=== PATIENT | male | born 1985 | race African-American/Black ===

== ENCOUNTER 2016-10-12 14:20 | Emergency (ER) | payer SELFPAY ==
--- NOTE | 2016-10-12 15:16 | ERRECORD ---
[facility] EMERGENCY RECORD HPI FOOT (14:44 [facility]) CHIEF COMPLAINT: Patient presents for evaluation of injury, Patient presents for evaluation of pain. HISTORIAN: History provided by patient, 31 year old male presents with complaints of right foot pain. States a horse fell on his foot yesterday. States he was unable to bear weight yesterday but can bear weight today. Denies other injury. MECHANISM OF INJURY: Mechanism of injury: Blunt trauma. LOCATION: Symptoms are localized, most severe in the first metatarsal. TIME COURSE: Sudden onset of symptoms, Symptoms are improving. ASSOCIATED WITH: Associated with pain on walking. ROS (14:45 [facility]) CONSTITUTIONAL: Negative constitutional review of systems, Historian denies chills, denies fever. ENT: Negative ears, nose, throat review of systems, Historian denies rhinorrhea, denies sore throat. CARDIOVASCULAR: Negative cardiovascular review of systems, Historian denies chest pain, denies palpitations. RESPIRATORY: Negative respiratory review of systems, Historian denies cough, denies shortness of breath. GI: Negative gastrointestinal review of systems, Historian denies abdominal pain, denies constipation, denies diarrhea, denies nausea, denies vomiting. MUSCULOSKELETAL: right foot pain sp injury. SKIN: Negative skin review of systems, Historian denies rash, denies skin changes. NEUROLOGIC: Negative neurologic review of systems, Historian denies headache. PAST MEDICAL HISTORY (14:29 [facility]) MEDICAL HISTORY: No past medical history, Flu vaccine not up to date, Tetanus not up to date, Pneumococcal vaccine not up to date. MALE SURGICAL HISTORY: Patient has no surgical history. PSYCHIATRIC HISTORY: Psychiatric history includes, bipolar disorder. SOCIAL HISTORY: Patient denies alcohol use, Patient denies drug use, Patient currently uses tobacco, smokes cigarettes, daily, Patient smokes 1/2 packs per day. KNOWN ALLERGIES ALLERGIES: (Unconfirmed) FOOD ALLERGIES: (Unconfirmed) LATEX ALLERGY? (Unconfirmed) No Known Allergies (Unconfirmed) No Known Drug Allergies &a-1R&a+25V*p+0X*h9750W*c202B*c15G*c2P*p-0X&a-25V&a+1R Name: Syl Bobby Garcias : 1985 M31 MedRec: [id number] AcctNum: [id number] Prepared: SatOct 12, 2016 15:21 by Interface Page 1 of 3 pMD [facility] EMERGENCY RECORD CURRENT MEDICATIONS (14:39 [facility]) None VITAL SIGNS (14:27 BGAR) VITAL SIGNS: BP: 141/86, Pulse: 77, Resp: 18, Temp: 97.6 (Oral), Pain: 8, O2 sat: 96 on Room Air, Time: 10/12/2016 14:27. PHYSICAL EXAM CONSTITUTIONAL: Vital signs reviewed, Patient afebrile, Pulse normal, Blood pressure normal, Respiratory rate normal, Patient appears non toxic, Patient appears pain free, Patient alert and oriented to person, place and time. (14:45 [facility]) NECK: Neck exam normal, Neck exam included findings of normal range of motion, Trachea midline, no meningeal signs, no cervical adenopathy, no tenderness. (14:45 JJ[facility]) RESPIRATORY CHEST: Respiratory and chest exam normal, Respiratory exam included findings of no respiratory distress, Breath sounds clear. (14:45 [facility]) CARDIOVASCULAR: Cardiovascular assessment normal, Cardiovascular exam included findings of heart rate regular rate and rhythm, Heart sounds normal. (14:45 JJ[facility]) ABDOMEN MALE: Abdominal exam included findings of abdomen nontender, Bowel sounds normal, no distension, no mass, no pulsatile masses, no peritoneal signs, no rigidity, no guarding, no rebound, Rovsing's sign absent. (14:45 JJAC) BACK: Back exam normal, Back exam included findings of normal inspection, range of motion normal, no tenderness. (14:45 [facility]) LOWER EXTREMITY: Lower extremity exam included findings of inspection normal, Range of motion normal, Motor strength normal, Sensation intact, Posterior tibial pulse normal, Pedal pulse normal, Shayla's negative, distal pulses intact, capillary refill less than 2 seconds, distal motor intact, distal sensory intact, Pelvis examination normal findings, Hip examination normal findings, Thigh normal, Knee examination normal findings, Lower leg normal, Ankle examination normal findings, Foot tenderness, right foot, medial. (14:46 JJAC) NEURO: Neuro exam normal, Neuro exam findings include patient oriented to person, place and time, Speech normal, Gait normal. (14:45 JJAC) SKIN: Skin exam normal, Skin exam included findings of skin warm, dry, and normal in color, no rash. (14:45 [facility]) DOCTOR NOTES (15:10 [facility]) TEXT: Normal radiology studies, patient weightbearing. Appropriate for outpatient follow and symptomatic care. PATIENT PLAN: The patient will be discharged. DATA REVIEWED: Xray data reviewed. PROBLEM LIST No recorded problems &a-1R&a+25V*p+0X*v7260Q*c202B*c15G*c2P*p-0X&a-25V&a+1R Name: Bobby Streeter : 1985 [facility] MedRec: [id number] AcctNum: [id number] Prepared: SatOct 12, 2016 15:21 by Interface Page 2 of 3 pMD [facility] EMERGENCY RECORD DIAGNOSIS (15:04 [facility]) FINAL: PRIMARY: RIGHT foot sprain. PRESCRIPTION No recorded prescriptions DISPOSITION PATIENT: Disposition Type: Discharge, Disposition: *Discharge Home. (15:04 [facility]) Patient left the department. (15:15 [facility]) Mendez: JET=ANNA Rubio, Karly JC=MD Iraida, Efrain KMOR=ANNA Hanna, Arlin &a-1R&a+25V*p+0X*s1654Q*c202B*c15G*c2P*p-0X&a-25V&a+1R Name: Bobby Streeter Katerine : 1985 [facility] [place] MedRec: [id number] AcctNum: [id number] Prepared: SatOct 12, 2016 15:21 by Interface Page 3 of 3 pMD MTDD
--- NOTE | 2016-10-12 15:23 | PICIS ---
[facility] EMERGENCY RECORD TRIAGE (SatOct 12, 2016 14:27 BGAR) TRIAGE NOTES: patient reports that horse fell on his leg yesterday. (SatOct 12, 2016 14:27 BGAR) PATIENT: AGE: 31, GENDER: male, : Sat1985, TIME OF GREET: SatOct 12, 2016 14:21, PREFERRED LANGUAGE: [place], ETHNICITY: Not or , ECODE BILLING MAP: [facility], SSN: [id number], Zip Code: [address], KG WEIGHT: 90.72 (est.), , , PERSON ID: [id number], PAYMENT: [facility] Self Pay, PCP: Eladia Resendez. (SatOct 12, 2016 14:27 BGAR) NAME: Bobby Streeter, PHONE: . (14:36) COMPLAINT: right leg painq. (SatOct 12, 2016 14:27 BGAR) ADMISSION: URGENCY: 4 Non Urgent, ADMISSION SOURCE: Home, TRANSPORT: CAR, BED: ER -04. (SatOct 12, 2016 14:27 BGAR) ASSESSMENT: Assessment: A&OX4. RR EVEN AND UNLABORED., Symptoms began yesterday. (14:29 KMOR) PAIN: Patient complains of pain described as, aching, on a scale 0-10 patient rates pain as 8, Location RIGHT FOOT. (14:29 [facility]) IMMUNIZATIONS: Flu vaccine not up to date, Tetanus not up to date. (14:29 [facility]) SIRS SCORING: Heart Rate 55-109 (0), Temp range 96.8-101.1 (0), respiratory rate 12-24 (0), Mental Status altered: no (0), Infection or Suspected Infection: No. (14:29 [facility]) TRIAGE SCREENING: Patient denies suicidal ideation, Patient denies presence of domestic violence. (14:29 [facility]) PROVIDERS: TRIAGE NURSE: Karly Rubio RN. (SatOct 12, 2016 14:27 BGAR) PREVIOUS VISIT ALLERGIES: No Known Drug Allergies. (SatOct 12, 2016 14:27 BG[facility]) No Known Drug Allergies. (14:29 [facility]) KNOWN ALLERGIES ALLERGIES: (Unconfirmed) FOOD ALLERGIES: (Unconfirmed) LATEX ALLERGY? (Unconfirmed) No Known Allergies (Unconfirmed) No Known Drug Allergies CURRENT MEDICATIONS (14:39 K[facility]) None VITAL SIGNS (14:27 BG[facility]) VITAL SIGNS: BP: 141/86, Pulse: 77, Resp: 18, Temp: 97.6 (Oral), Pain: 8, O2 sat: 96 on Room Air, Time: 10/12/2016 14:27. NURSING ASSESSMENT: EXTREMITY LOWER (14:38 [facility]) CONSTITUTIONAL: Patient arrives ambulatory, Gait steady, History obtained from patient, Patient appears comfortable, Patient alert, Oriented to person, place and time, Skin warm, Skin dry, Skin normal &a-1R&a+25V*p+0X*b5932Q*c202B*c15G*c2P*p-0X&a-25V&a+1R Name: Bobby Streeter : 1985 M31 MedRec: [id number] AcctNum: [id number] Prepared: SatOct 12, 2016 15:21 by Interface Page 1 of 5 pMD [facility] EMERGENCY RECORD in color, Mucous membranes pink, Mucous membranes moist, Patient is well-groomed, Patient complains of Right foot pain, Right foot pain after horse fell on him 1 day ago. Patient ambulatory in to ed. PAIN: aching pain, to the right ankle, to the right foot, on a scale 0-10 patient rates pain as 8. LEFT LOWER EXTREMITY: Left lower extremity assessment findings include capillary refill less than 2 seconds, Skin color normal, Skin temperature warm, Distal sensation intact, Muscle tone normal, muscle strength 5, no edema present, posterior tibia pulse is +3. RIGHT LOWER EXTREMITY: Right lower extremity assessment findings include capillary refill less than 2 seconds, Skin color normal, Skin temperature warm, Distal sensation intact, Muscle tone normal, muscle strength 5, no edema present, dorsalis pedis pulse is +3, Inspection findings include no contusion, Inspection findings include no deformity, Inspection findings include no redness, Inspection findings include no swelling. NOTES: Patient tolerated procedure well. NURSING PROCEDURE: DISCHARGE NOTE (15:13 KMOR) DISCHARGE: Patient discharged to home, ambulating without assistance, driving self, unaccompanied, Summary of Care printed/ provided, Transition record given to patient, Discharge instructions given to patient, Simple or moderate discharge teaching performed, by ANNA Oliveros, Discharge instructions and follow up reviewed with patient. Pt ambulatory to discharge desk., Above person(s) verbalized understanding of discharge instructions and follow-up care. BELONGINGS: Belongings remain with patient, Valuables remain with patient. NOTES: Patient tolerated procedure well. NURSING PROCEDURE: NURSE NOTES (14:30 KMOR) NURSES NOTES: Notes: Patient playing on phone laughing, requested patient get off phone while doing history. ORDER DETAILS Order Name: XR Foot Rt 3 View STANDARD, Status: Active, Time: 14:42 10/12/2016, [facility], - Ordered for: MD Khoury Jason, - Entered by: MD Khoury Jason - SatOct 12, 2016 14:42, - Quantity: 1. HPI FOOT (14:44 [facility]) CHIEF COMPLAINT: Patient presents for evaluation of injury, Patient presents for evaluation of pain. HISTORIAN: History provided by patient, 31 year old male presents with complaints of right foot pain. States a horse fell &a-1R&a+25V*p+0X*a1436H*c202B*c15G*c2P*p-0X&a-25V&a+1R Name: Bobby Streeter : 1985 M31 MedRec: [id number] AcctNum: [id number] Prepared: SatOct 12, 2016 15:21 by Interface Page 2 of 5 pMD [facility] EMERGENCY RECORD on his foot yesterday. States he was unable to bear weight yesterday but can bear weight today. Denies other injury. MECHANISM OF INJURY: Mechanism of injury: Blunt trauma. LOCATION: Symptoms are localized, most severe in the first metatarsal. TIME COURSE: Sudden onset of symptoms, Symptoms are improving. ASSOCIATED WITH: Associated with pain on walking. ROS (14:45 [facility]) CONSTITUTIONAL: Negative constitutional review of systems, Historian denies chills, denies fever. ENT: Negative ears, nose, throat review of systems, Historian denies rhinorrhea, denies sore throat. CARDIOVASCULAR: Negative cardiovascular review of systems, Historian denies chest pain, denies palpitations. RESPIRATORY: Negative respiratory review of systems, Historian denies cough, denies shortness of breath. GI: Negative gastrointestinal review of systems, Historian denies abdominal pain, denies constipation, denies diarrhea, denies nausea, denies vomiting. MUSCULOSKELETAL: right foot pain sp injury. SKIN: Negative skin review of systems, Historian denies rash, denies skin changes. NEUROLOGIC: Negative neurologic review of systems, Historian denies headache. PAST MEDICAL HISTORY (14:29 KM[facility]) MEDICAL HISTORY: No past medical history, Flu vaccine not up to date, Tetanus not up to date, Pneumococcal vaccine not up to date. MALE SURGICAL HISTORY: Patient has no surgical history. PSYCHIATRIC HISTORY: Psychiatric history includes, bipolar disorder. SOCIAL HISTORY: Patient denies alcohol use, Patient denies drug use, Patient currently uses tobacco, smokes cigarettes, daily, Patient smokes 1/2 packs per day. PHYSICAL EXAM CONSTITUTIONAL: Vital signs reviewed, Patient afebrile, Pulse normal, Blood pressure normal, Respiratory rate normal, Patient appears non toxic, Patient appears pain free, Patient alert and oriented to person, place and time. (14:45 [facility] NECK: Neck exam normal, Neck exam included findings of normal range of motion, Trachea midline, no meningeal signs, no cervical adenopathy, no tenderness. (14:45 [facility] RESPIRATORY CHEST: Respiratory and chest exam normal, Respiratory exam included findings of no respiratory distress, Breath sounds clear. (14:45 [facility] CARDIOVASCULAR: Cardiovascular assessment normal, Cardiovascular &a-1R&a+25V*p+0X*s2103Q*c202B*c15G*c2P*p-0X&a-25V&a+1R Name: Bobby Streeter Katerine : 1985 M31 MedRec: [id number] AcctNum: [id number] Prepared: SatOct 12, 2016 15:21 by Interface Page 3 of 5 pMD [facility] EMERGENCY RECORD exam included findings of heart rate regular rate and rhythm, Heart sounds normal. (14:45 [facility]) ABDOMEN MALE: Abdominal exam included findings of abdomen nontender, Bowel sounds normal, no distension, no mass, no pulsatile masses, no peritoneal signs, no rigidity, no guarding, no rebound, Rovsing's sign absent. (14:45 JJ[facility]) BACK: Back exam normal, Back exam included findings of normal inspection, range of motion normal, no tenderness. (14:45 JJ[facility]) LOWER EXTREMITY: Lower extremity exam included findings of inspection normal, Range of motion normal, Motor strength normal, Sensation intact, Posterior tibial pulse normal, Pedal pulse normal, Shayla's negative, distal pulses intact, capillary refill less than 2 seconds, distal motor intact, distal sensory intact, Pelvis examination normal findings, Hip examination normal findings, Thigh normal, Knee examination normal findings, Lower leg normal, Ankle examination normal findings, Foot tenderness, right foot, medial. (14:46 JJAC) NEURO: Neuro exam normal, Neuro exam findings include patient oriented to person, place and time, Speech normal, Gait normal. (14:45 JJAC) SKIN: Skin exam normal, Skin exam included findings of skin warm, dry, and normal in color, no rash. (14:45 JJAC) EVENTS TRANSFER: Triage to Emergency Emergency Room -04. (SatOct 12, 2016 14:27 BGAR) Removed from Emergency Emergency Room -04. (15:15 KM[facility]) DOCTOR NOTES (15:10 JJ[facility]) TEXT: Normal radiology studies, patient weightbearing. Appropriate for outpatient follow and symptomatic care. PATIENT PLAN: The patient will be discharged. DATA REVIEWED: Xray data reviewed. PROBLEM LIST No recorded problems DIAGNOSIS (15:04 [facility]) FINAL: PRIMARY: RIGHT foot sprain. DISPOSITION PATIENT: Disposition Type: Discharge, Disposition: *Discharge Home. (15:04 JJAC) Patient left the department. (15:15 KM[facility]) INSTRUCTION (15:05 JJA) DISCHARGE: FOOT CONTUSION. SPECIAL: Follow up with your regular doctor. Ice, Motrin for pain. &a-1R&a+25V*p+0X*g1309B*c202B*c15G*c2P*p-0X&a-25V&a+1R Name: Syl Bobby Garcias : 1985 M31 MedRec: [id number] AcctNum: [id number] Prepared: SatOct 12, 2016 15:21 by Interface Page 4 of 5 pMD [facility] EMERGENCY RECORD PRESCRIPTION No recorded prescriptions IMAGING (15:14 [facility]) *DISCHARGE INSTRUCTIONS RECEIPT: Image captured from scanner. *SUPPLY CHARGE SHEET: Image captured from scanner. ADMIN DIGITAL SIGNATURE: MD Iraida, Efrain. (15:11 LYNDSEY) ANNA Hanna Krista. (15:15 MITA) Mendez: JET=ANNA Rubio, Karly SOLORIO=MD Khoury Jason KMOR=ANNA Hanna Krista &a-1R&a+25V*p+0X*k5923K*c202B*c15G*c2P*p-0X&a-25V&a+1R Name: Bobby Streeter : 1985 M31 MedRec: [id number] AcctNum: [id number] Prepared: SatOct 12, 2016 15:21 by Interface Page 5 of 5 pMD MTDD
--- NOTE | 2016-10-12 20:34 | RAD ---
RIGHT FOOT THREE VIEWS 10/12/16 No fracture, recent or remote, was appreciated. All bones appeared intact. The tarsal bones appear n ormal. The medial foot was unremarkable. No periosteal reaction was seen. IMPRESSION: No significant finding. POS: HOME
== END 2016-10-12 15:10 | disposition home or self-care (01) ==
LOC: BURERS 14:20
DX: S93.601A Unspecified sprain of right foot, initial encounter (principal); F31.9 Bipolar disorder, unspecified; F17.210 Nicotine dependence, cigarettes, uncomplicated; X58.XXXA Exposure to other specified factors, initial encounter
CPT/HCPCS: 99283